=== PATIENT | male | born 1955 | race Caucasian/White ===

== ENCOUNTER 2021-04-21 06:21 | Outpatient (REF) | payer MEDICARE, SELFPAY ==
[2021-04-21 07:02] LABS: MANUAL DIFF FLAG NO
[2021-04-21 07:04] LABS: Basophils Percent Auto 0.6 % (0-2); Eosinophils Absolute Auto 0.2 X10*3/uL (0.0-0.4); Eosinophils Percent Auto 4.5 % (0-4); Hematocrit 42.3 % (42-52); Hemoglobin 14.9 g/dl (14.0-18.0); Imm Gran Abs Auto 0.01 X10*3/uL (0.00-0.03); Imm Gran Pct Auto 0.2 % (0.0-0.4); Lymphocytes Absolute Auto 1.5 X10*3/uL (1.2-4.9); Lymphocytes Percent Auto 31.6 % (20-40); Mean Corpuscular HGB Conc 35.2 g/dl (31.0-36.0); Mean Corpuscular Volume 93.8 fL (80-98); Mean Platelet Volume 9.5 fL (9.4-12.4); Monocytes Absolute Auto 0.5 X10*3/uL (0.1-1.2); Monocytes Percent Auto 9.4 % (2-11); Neutrophils Absolute Auto 2.6 X10*3/uL (2.0-8.3); Neutrophils Percent Auto 53.7 % (45-73); Platelet Count 233 X10*3/uL (160-400); Red Blood Count 4.51 X10*6/uL (4.60-5.80); Red Cell Distribution Width 12.5 % (11.0-16.0); White Blood Count 4.9 X10*3/uL (4.8-10.8)
[2021-04-21 07:51] LABS: Alanine Aminotransferase 15 U/L (0-40); Albumin Level 4.3 g/dL (3.5-5.0); Alkaline Phosphatase 65 U/L (39-117); Anion Gap 12 (12-20); Aspartate Amino Transferase 18 U/L (5-37); Bilirubin Total 0.8 mg/dL (0.0-1.0); Blood Urea Nitrogen 14 mg/dL (9-16); Calcium 9.3 mg/dL (8.4-10.2); Carbon Dioxide 27 mmol/L (22-29); Chloride 104 mmol/L (96-108); Cholesterol 194 mg/dL; Estimated Glomerular Filt Rate > 60; Glucose Random 95 mg/dL (60-115); HDL Cholesterol 46 mg/dL; LDL Cholesterol Calculated 126 mg/dl; Potassium 4.5 mmol/L (3.3-5.1); Sodium 138 mmol/L (135-145); Total Protein 6.9 g/dL (6.5-8.0); Triglycerides 114 mg/dL
[2021-04-21 08:03] LABS: Prostate Specific Antigen 2.38 ng/mL (<0.05-4.0); Vitamin D 25-OH Total 44.2 ng/mL (>30)
[2021-04-29 13:56] LABS: Testosterone, Total 254 ng/dL (250-1100)
== END 2021-04-21 06:22 | disposition home or self-care (01) ==
LOC: HO.LAB 06:21
PROVIDERS: PCP Internal Medicine; Visit Provider Internal Medicine
DX: Z00.00 Encounter for general adult medical examination without abnormal findings (principal); Z12.5 Encounter for screening for malignant neoplasm of prostate
CPT/HCPCS: 36415; 80053; 80061; 82306; 84153; 84403; 85025

== ENCOUNTER 2022-04-27 06:11 | Outpatient (REF) | payer MEDICARE, SELFPAY ==
[2022-04-27 06:32] LABS: MANUAL DIFF FLAG NO
[2022-04-27 07:31] LABS: Basophils Percent Auto 0.7 % (0-2); Eosinophils Absolute Auto 0.2 X10*3/uL (0.0-0.4); Eosinophils Percent Auto 4.3 % (0-4); Hematocrit 42.5 % (42.0-52.0); Hemoglobin 14.9 g/dl (14.0-18.0); Imm Gran Abs Auto 0.01 X10*3/uL (0.00-0.03); Imm Gran Pct Auto 0.2 % (0.0-0.4); Lymphocytes Absolute Auto 1.4 X10*3/uL (1.2-4.9); Lymphocytes Percent Auto 30.4 % (20-40); Mean Corpuscular HGB Conc 35.1 g/dl (31.0-36.0); Mean Corpuscular Hemoglobin 32.2 pg (27.0-33.0); Mean Corpuscular Volume 91.8 fL (80.0-98.0); Mean Platelet Volume 9.6 fL (9.4-12.4); Monocytes Absolute Auto 0.5 X10*3/uL (0.1-1.2); Monocytes Percent Auto 10.8 % (2-11); Neutrophils Absolute Auto 2.5 x10*3/uL (2.0-8.3); Neutrophils Percent Auto 53.6 % (45-73); Platelet Count 247 X10*3/uL (160-400); Red Blood Count 4.63 X10*6/uL (4.60-5.80); Red Cell Distribution Width 12.4 % (11.0-16.0); White Blood Count 4.6 X10*3/uL (4.8-10.8)
[2022-04-27 08:00] LABS: Alanine Aminotransferase 15 U/L (0-40); Albumin Level 4.3 g/dL (3.5-5.0); Alkaline Phosphatase 66 U/L (39-117); Anion Gap 14 (12-20); Aspartate Amino Transferase 18 U/L (5-37); Blood Urea Nitrogen 18 mg/dL (9-16); Carbon Dioxide 26 mmol/L (22-29); Chloride 102 mmol/L (96-108); Estimated Glomerular Filt Rate > 60; Glucose Random 93 mg/dL (60-115); Potassium 4.5 mmol/L (3.3-5.1); Sodium 137 mmol/L (135-145)
[2022-04-27 08:13] LABS: ~HepC Num1 0.07 S/CO (0.00-0.79); ~Hepatitis C Antibody Nonreactive (Nonreactive)
[2022-04-27 08:21] LABS: Vitamin B12 611 pg/mL (200-900)
[2022-04-27 08:22] LABS: Prostate Specific Antigen 2.08 ng/mL (<0.05-4.0); Thyroid Stimulating Hormone 1.94 uIU/mL (0.32-4.0); Vitamin D 25-OH Total 43.3 ng/mL (>30)
== END 2022-04-27 06:12 | disposition home or self-care (01) ==
LOC: HO.LAB 06:11
PROVIDERS: PCP Internal Medicine; Visit Provider Internal Medicine
DX: Z00.01 Encounter for general adult medical examination with abnormal findings (principal); Z12.5 Encounter for screening for malignant neoplasm of prostate; Z11.59 Encounter for screening for other viral diseases
CPT/HCPCS: 36415; 80053; 82306; 82607; 84153; 84443; 85025; 86803

== ENCOUNTER 2023-05-16 06:29 | Outpatient (REF) | payer MEDICARE, SELFPAY ==
[2023-05-16 06:44] LABS: MANUAL DIFF FLAG NO
[2023-05-16 07:02] LABS: Basophils Percent Auto 0.7 % (0-2); Eosinophils Absolute Auto 0.2 X10*3/uL (0.0-0.4); Eosinophils Percent Auto 4.7 % (0-4); Hematocrit 44.1 % (42.0-52.0); Hemoglobin 15.4 g/dl (14.0-18.0); Lymphocytes Absolute Auto 1.6 X10*3/uL (1.2-4.9); Lymphocytes Percent Auto 36.9 % (20-40); Mean Corpuscular HGB Conc 34.9 g/dl (31.0-36.0); Mean Corpuscular Hemoglobin 32.7 pg (27.0-33.0); Mean Corpuscular Volume 93.6 fL (80.0-98.0); Mean Platelet Volume 9.4 fL (9.4-12.4); Monocytes Absolute Auto 0.5 X10*3/uL (0.1-1.2); Monocytes Percent Auto 11.4 % (2-11); Neutrophils Percent Auto 46.3 % (45-73); Platelet Count 223 X10*3/uL (160-400); Red Blood Count 4.71 X10*6/uL (4.60-5.80); Red Cell Distribution Width 12.2 % (11.0-16.0); White Blood Count 4.3 X10*3/uL (4.8-10.8)
[2023-05-16 07:38] LABS: Alanine Aminotransferase 16 U/L (0-40); Albumin Level 4.3 g/dL (3.5-5.0); Alkaline Phosphatase 59 U/L (39-117); Anion Gap 12 (12-20); Aspartate Amino Transferase 20 U/L (5-37); Bilirubin Total 0.8 mg/dL (0.0-1.0); Blood Urea Nitrogen 15 mg/dL (9-16); Calcium 9.9 mg/dL (8.4-10.2); Carbon Dioxide 27 mmol/L (22-29); Chloride 105 mmol/L (96-108); Cholesterol 199 mg/dL (<200); Estimated Glomerular Filt Rate > 60; Glucose Random 97 mg/dL (60-115); HDL Cholesterol 49 mg/dL (>40); LDL Cholesterol Calculated 134 mg/dL (<100); Potassium 4.8 mmol/L (3.3-5.1); Sodium 139 mmol/L (135-145); Total Protein 7.2 g/dL (6.5-8.0); Triglycerides 83 mg/dL (<150)
== END 2023-05-16 06:30 | disposition home or self-care (01) ==
LOC: HO.LAB 06:29
PROVIDERS: PCP Internal Medicine; Visit Provider Internal Medicine
DX: Z00.01 Encounter for general adult medical examination with abnormal findings (principal); Z12.5 Encounter for screening for malignant neoplasm of prostate
CPT/HCPCS: 36415; 80053; 80061; 84153; 85025

== ENCOUNTER 2024-06-05 06:21 | Outpatient (REF) | payer MEDICARE, SELFPAY ==
[2024-06-05 06:35] LABS: MANUAL DIFF FLAG NO
[2024-06-05 07:14] LABS: Basophils Absolute Auto 0.1 X10*3/uL (0.0-0.2); Eosinophils Absolute Auto 0.3 X10*3/uL (0.0-0.4); Eosinophils Percent Auto 4.8 % (0-4); Hematocrit 42.6 % (42.0-52.0); Imm Gran Abs Auto 0.01 X10*3/uL (0.00-0.03); Imm Gran Pct Auto 0.2 % (0.0-0.4); Lymphocytes Absolute Auto 1.7 X10*3/uL (1.2-4.9); Lymphocytes Percent Auto 31.9 % (20-40); Mean Corpuscular HGB Conc 35.2 g/dl (31.0-36.0); Mean Corpuscular Hemoglobin 32.9 pg (27.0-33.0); Mean Corpuscular Volume 93.4 fL (80.0-98.0); Mean Platelet Volume 9.4 fL (9.4-12.4); Monocytes Absolute Auto 0.6 X10*3/uL (0.1-1.2); Monocytes Percent Auto 10.8 % (2-11); Neutrophils Absolute Auto 2.7 x10*3/uL (2.0-8.3); Neutrophils Percent Auto 51.3 % (45-73); Platelet Count 219 X10*3/uL (160-400); Red Blood Count 4.56 X10*6/uL (4.60-5.80); Red Cell Distribution Width 12.6 % (11.0-16.0); White Blood Count 5.3 X10*3/uL (4.8-10.8)
[2024-06-05 07:32] LABS: Alanine Aminotransferase 17 U/L (0-40); Albumin Level 4.2 g/dL (3.5-5.0); Alkaline Phosphatase 69 U/L (39-117); Anion Gap 13 (12-20); Aspartate Amino Transferase 25 U/L (5-37); Bilirubin Total 0.7 mg/dL (0.0-1.0); Blood Urea Nitrogen 17 mg/dL (9-16); Calcium 9.6 mg/dL (8.4-10.2); Carbon Dioxide 28 mmol/L (22-29); Chloride 103 mmol/L (96-108); Cholesterol 211 mg/dL (<200); Estimated Glomerular Filt Rate > 60; Glucose Random 98 mg/dL (60-115); HDL Cholesterol 55 mg/dL (>40); LDL Cholesterol Calculated 139 mg/dL (<100); Potassium 4.1 mmol/L (3.3-5.1); Sodium 140 mmol/L (135-145); Total Protein 7.1 g/dL (6.5-8.0); Triglycerides 89 mg/dL (<150)
[2024-06-05 07:45] LABS: Prostate Specific Antigen 3.53 ng/mL (<0.05-4.0)
== END 2024-06-05 06:22 | disposition home or self-care (01) ==
LOC: HO.LAB 06:21
PROVIDERS: PCP Internal Medicine; Visit Provider Internal Medicine
DX: Z00.00 Encounter for general adult medical examination without abnormal findings (principal); N40.0 Benign prostatic hyperplasia without lower urinary tract symptoms; Z12.5 Encounter for screening for malignant neoplasm of prostate
CPT/HCPCS: 36415; 80053; 80061; 84153; 85025

== ENCOUNTER 2024-11-15 14:05 | Outpatient (REF) | payer MEDICARE, SELFPAY ==
[2024-11-15 14:23] LABS: MANUAL DIFF FLAG NO
--- OUTSIDE RECORDS SUMMARY | 2024-11-15 14:34 | XMS_ITS | Continuity of Care Document ---
Author Organization [facility] Address [address] [place] [address] [place] [address] Assessment No assessment recorded. Plan of Treatment Reminders Order Date Submit Date Provider Last Modified By Organization Details Last Modified Time Details Appointments FOLLOW UP 15 2024 10:45A M LONA DWYER Not available Not available Not available ANNUAL EXAM 2024 09:00A M DR LOCK Not available Not available Not available Lab PSA, serum or plasma 2024 025 [facility], [address] [place] [address], [id number], 11/15/2024 11:21:37 CBC w/ auto diff 2024 025 [facility], [address] [place] [address], [id number], 11/15/2024 11:21:37 CMP, serum or plasma 2024 025 [facility], [address] [place] [address], [id number], 11/15/2024 11:21:37 urinalysi s complete, reflex culture 2024 025 [facility], [address] [place] [address], [id number], 11/15/2024 11:21:37 Referral None recorded. Procedures None recorded. Surgeries None recorded. Imaging CT, abdomen + pelvis, w/ contrast 2024 025 [email or web address] [facility]), [address] [place] [address], [place], [id number], 11/15/2024 11:23:00 Medication Orders None recorded. Patient TargetsNo targets recorded. Patient InstructionsNo instructions recorded. Reason for Referral None Reported. Problems Name Problem SNOMED Code Status Onset Date Resolution Date Notes Provider Name and Address Organization Details Recorded Time Benign prostatic hyperplas ia 201781945 Active 2020 Not Available [facility] 3 08:19:45 Tenosynov itis of right radial styloid 653216082663 86757 Active 2021 Not Available [facility] 3 08:19:45 Osteoarth rosis of the carpometa carpal joint of the thumb 95507140 Active 2021 Not Available [facility] 3 08:19:45 Dysplasti c nevus of skin 644323753 Active 2023 Jagdeep Lock DO [address] [place] [address], [phone], [facility] 4 09:22:34 Gastritis 8817978 Active 2023 LONA DWYER [address] [place] [address], [phone], [facility] 4 14:13:51 Inguinal pain 041683504 Active 2024 LONA DWYER [address] [place] [address], [phone], [facility] 5 11:17:58 Pain in right hip joint 952547981997 102 Active 2024 LONA DWYER [address] [place] [address], [phone], [facility] 5 11:18:06 Low back pain 552457050 Active 2024 LONA DWYER [address] [place] [address], [phone], [facility] 5 11:18:15 Problem Notes None recorded. Medical Equipment None Reported. Allergies No known drug allergies Medications Name Sig Start Date Stop Date Status Note LastModified by Organization Details LastModified Time pantoprazol e sodium 40 mg tbec 03/10 completed Not Available Not Available Not Available gavilyte-g mala 03/10 completed Not Available Not Available Not Available hydromorpho ne hcl 4 mg tabs 03/10 completed Not Available Not Available Not Available celecoxib 200 mg caps 03/10 completed Not Available Not Available Not Available amoxicillin 500 mg capsule TAKE 4 CAPSULES BY MOUTH 1 HOUR PRIOR TO PROCEDURE 11/15 completed Not Available Not Available Not Available sildenafil 50 mg tablet TAKE 1 TABLET BY MOUTH NEEDED 04/26 completed Not Available Not Available Not Available omeprazole 40 mg capsule,del ayed release TAKE 1 CAPSULE BY MOUTH EVERY DAY 2023 active Not Available Not Available Not Avai lable sildenafil 100 mg tablet TAKE 1 TABLET BY MOUTH EVERY DAY DIRECTED active Not Available Not Available No t Available diclofenac sodium 75 mg tablet,geovany yed release Take 1 tablet twice a day by oral route for 15 days. 05/01 completed Not Available Not Available Not Available Fluarix Quad 4560-7928 (PF) 60 mcg (15 mcg x 4)/0.5 mL IM syringe 03/05 completed Not Available Not Available Not Available Vitals Date Recorded Body height Body mass index (BMI) Body weight Heart rate Oxygen saturation Oxygen saturation in Arterial blood by Pulse oximetry Systolic blood pressure Diastolic blood pressure Provider Name and Address Organization Details Last Updated DateTime 5 167.64 cm 29.1 kg/m2 85262.3 5 g 56 /min 98 % 98 % 126 mm[Hg] 82 mm[Hg] Laura Tre [facility] 5 10:49:42 Social History Question Answer Notes LastModified by Organizat ion Details LastModified Time Tobacco Smoking Status Never Smoker Not Available [facility] 07/28/2020 03:36:24 What Is Your Level Of Alcohol Consumption? Occasional [id number] Information not available 07/28/2020 What Is Your Level Of Caffeine Consumption? Occasional 2-3 Cups Coffee Per Day [id number] Information not available 07/28/2020 What Was The Date Of Your Most Recent Tobacco Screening? 11/15/2024 [email or web address] Information not available 11/15/2024 Do You Or Have You Ever Used Any Other Forms Of Tobacco Or Nicotine? No [email or web address] Information not available 05/15/2023 Sex: Unknown Functional Status Question Answer Note LastModified by Organization D etails LastModified Time What is your exercise level? Moderate [id number] Information not available 07/28/2020 Mental Status None recorded. Family History Nothing Reported. Medical History No medical history recorded. Immunizations Vaccine Type Date Status Note Provider Nam e and Address Organization Details Recorded Time Tdap 04/12/20 20 completed Jagdeep Lock, DO [address] [place] [address], [place], [phone], [facility] 04/20/2021 10:50:41 pneumococcal polysaccharide PPV23 06/02/20 20 completed Tayler Gencarelle [facility] 04/26/2022 09:26:59 zoster, unspecified formulation 06/02/20 20 [facility] 09:26:59 zoster, unspecified formulation 10/16/19 21 completed Tayler Gencarelle [facility] 04/26/2022 09:26:59 COVID-19, mRNA, LNP-S, PF, 100 mcg/0.5mL dose or 50 mcg/0.25mL dose 11/16/19 21 completed Tayler Gencarelle [facility] 04/26/2022 09:26:59 COVID-19, mRNA, LNP-S, PF, 100 mcg/0.5mL dose or 50 mcg/0.25mL dose 12/15/19 21 completed Tayler Gencarelle [facility] 04/26/2022 09:26:59 Influenza, split virus, quadrivalent, preservative 06/08/20 21 completed Tayler Gencarelle [facility] 04/26/2022 09:26:59 COVID-19, mRNA, LNP-S, bivalent, PF, 50 mcg/0.5 mL or 25mcg/0.25 mL dose 08/30/20 22 completed Liliana Alonzo kacie [facility] 09/02/2022 08:27:16 Influenza, split virus, quadrivalent, preservative 07/22/20 18 completed Tayler Montague kacie [facility] 04/26/2022 09:26:59 Past Encounters Encounter ID Performer Location Encounter Start Date Encounter Closed Date Diagnosis/Indication Diagnosis SNOMED-CT Code Diagnosis ICD10 Code Diagnosis Note [id number] LONA DWYER [facility] [address] [address] 11/15/2024 10:32:09 11/15/2024 11:23:00 Screening for malignant neoplasm of prostate 403637174 Z12.5 will set up with PSA screening recheck given upper wnl last time and new symptoms with urine testing Inguinal pain 441054644 R10.[address] for eval for the non specific pain Pain in ri ght hip joint 9218008387 94795 M25.551 hx of THR Low back pain 742937781 M54.50 Health Concerns Section Related Observation LastModified by Organization Detai ls LastModified Time None Recorded Concern Status LastModified by Organization Details LastModified Time None Recorded Payers Encounter Date Sequence Insurance Name Policy Number Policy Saucedo Covered Member ID Saucedo Member ID Guarantor Name 11/15/2024 1 [facility]: MEDICARE PPO BLUE (MEDICARE REPLACEMENT PPO) [id number] Hal Story [id number] Hal Story Notes Date Note Type Note Provider Name a nd Address Organization Details Recorded Time 11/15/2024 text/html c/o groin pain the patient reports that he is getting hip, groin pain, down there per patientthe patient reports that he does have a weaker stream during the night and at the day notes he is having more issues with the sildenafil, having to take more that he usually does no discharge, no urinary changes otherwisethe patient has not pain or issues with ejaculation of intercourse the patient reports that he has been having more frequent, smaller bowel movements for the past 3 mos the patient does not note any main changes positionalthe patient denies any masses or lumps in his testicles, no tenderness with palpation LONA DWYER [address] [place] [address], [phone], [facility] 11/15/2024 11:22:26
--- OUTSIDE RECORDS SUMMARY | 2024-11-15 14:34 | XMS_ITS | Data Portability ---
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 MODERATE MUST MEET 2 OUT OF 3 ELEMENTS: PROBLEMS, DATA OR RISK ELEMENT 1: PROBLEMS ADDRESSED 1 OR MORE CHRONIC ILLNESS WITH EXACERBATION OR 2 OR MORE STABLE CHRONIC ILLNESSES OR 1 UNDIAGNOSED NEW PROBLEM OR 1 ACUTE ILLNESS W/SYMPTOMS OR 1 ACUTE COMPLICATED INJURY ELEMENT 2: DATA MUST MEET 1 OF 3 CATEGORIES CATEGORY 1: REVIEW OF PRIOR EXTERNAL NOTES, REVIEW OF RESULTS, ORDERING OF EACH TEST, ASSESSMENT REQUIRING INDEPENDENT HISTORIAN OR CATEGORY 2: INDEPENDENT INTERPRETATION OF TESTS BY ANOTHER PHYSICIAN OR SPECIALIST OR CATEGORY 3: DISCUSSION OF MGT OR TEST INTERPRETATION W/EXTERNAL PHYSICIAN OR SPECIALIST ELEMENT 3: RISK RISK OF COMPLICATIONS AND/OR MORBIDITY OR MORTALITY OF PATIENT MANAGEMENT PROVIDER MUST THOROUGHLY DOCUMENT EACH ELEMENT THAT IS COVERED Not available 05/15/2023 15:49:41 Plan of Treatment Reminders Order Date Submit Date Provider Last Modified By Organization Details Last Modified Time Details Appointments FOLLOW UP 15 2024 10:45A M LONA DWYER Not available Not available Not available ANNUAL EXAM 2024 09:00A M DR LOCK Not available Not available Not available Lab PSA, serum or plasma 2024 025 [facility], [address] [place] [address], [place], [id number], 11/15/2024 11:21:37 CBC w/ auto diff 2024 025 [facility], [address] [place] [address], [id number], 11/15/2024 11:21:37 CMP, serum or plasma 2024 025 [facility], [address] [place] [address], [id number], 11/15/2024 11:21:37 urinalysi s complete, reflex culture 2024 025 [facility], [address] [place] [address], [id number], 11/15/2024 11:21:37 CMP, serum or plasma 2023 024 [facility], [address] [place] [address], [id number], 06/05/2024 11:14:03 CBC w/ auto diff 2023 024 [facility], [address] [place] [address], [id number], 06/05/2024 11:14:04 lipid panel, blood 2023 024 [facility], [address] [place] [address], [id number], 06/05/2024 11:14:03 PSA, serum or plasma 2023 024 [facility], [address] [place] [address], [id number], 06/05/2024 11:14:04 CMP, serum or plasma 2022 023 [facility], [address] [place] [address], [id number], 05/16/2023 12:13:18 CBC w/ auto diff 2022 023 [facility], [address] [place] [address], [id number], 05/16/2023 12:13:19 PSA, serum or plasma 2022 023 [facility], [address] [place] [address], [id number], 05/16/2023 12:13:19 lipid panel, blood 2022 023 [facility], [address] [place] [address], [id number], 05/16/2023 12:13:19 CBC w/ auto diff 2021 022 [facility], [address] [place] [address], [id number], 04/27/2022 13:01:50 CMP, serum or plasma 2021 022 [facility], [address] [place] [address], [id number], 04/27/2022 13:01:50 PSA, serum or plasma 2021 022 [facility], [address] [place] [address], [id number], 04/26/2022 10:10:35 vitamin D, 25-hydrox y, total, serum 2021 022 [facility], [address] [place] [address], [address], 04/26/2022 10:10:35 vitamin B12, serum 2021 022 [facility], [address] [place] [address], [id number], 04/26/2022 10:10:35 TSH, serum or plasma 2021 022 [facility], [address] [place] [address], [id number], 04/26/2022 10:10:35 hepatitis C Ab, serum 2021 022 [facility], [address] [place] [address], [place], [address], 04/26/2022 10:10:35 Referral dermatolo gist referral 2023 024 [email or web address] 10 [facility], [address], [place], [address], 06/05/2024 08:17:44 hand surgeon referral 2021 022 [email or web address] 10 Alisha Paz MD, [address] [place] [address], [id number], 05/25/2022 08:00:03 Procedures None recorded. Surgeries None recorded. Imaging CT, abdomen + pelvis, w/ contrast 2024 025 [facility] ([facility]), [address] [place] [address], [place], [address], 11/15/2024 11:23:00 Medication Orders omeprazol e 40 mg capsule,d elayed release 2023 024 [email or web address] [id number], [address] [facility], [place], [address], 07/17/2024 08:30:54 Patient TargetsNo targets recorded. Patient Instructions Encounter Date Encounter Id Patient Instructions Last Modified By Organization Details Last Modified Time 04/26/2022 [id number] osteoarthritis: care instructions Not available 04/26/2022 10:06:43 05/15/2023 [id number] osteoarthritis: care instructions Not available 05/15/2023 15:55:18 Reason for Referral Hand Surgeon Referral for Os teoarthrosis of the carpometacarpal joint of the thumb Referring Physician: Jagdeep Lock, Internal Medicine, Encounter Date: 04/26/2022 Crop Pest Control Specialist Referral for D ysplastic nevus of skin Referring Physician: Jagdeep Lock, Internal Medicine, Encounter Date: 06/04/2024 Results Created Date Observation Date Name Description Value Unit Range Abnormal Flag Note LastModifiedBy Organization Detail LastModifiedTime Result Notes None recorded. Problems Name Problem SNOMED Code Status Onset Date Resolution Date Notes Provider Name and Address Organization Details Recorded Time Benign prostatic hyperplas ia 126814172 Active 2020 Not Available [facility] 3 08:19:45 Tenosynov itis of right radial styloid 762235530092 29959 Active 2021 Not Available [facility] 3 08:19:45 Osteoarth rosis of the carpometa carpal joint of the thumb 83627218 Active 2021 Not Available [facility] 3 08:19:45 Dysplasti c nevus of skin 082979842 Active 2023 Jagdeep Lock, [address] [place] [address], [phone], [facility] 4 09:22:34 Gastritis 3072704 Active 2023 LONA DWYER [address] [place] [address], [address], [facility] 4 14:13:51 Inguinal pain 020593725 Active 2024 LONA DWYER [address] [place] [address], [address], [facility] 5 11:17:58 Pain in right hip joint 588947827127 102 Active 2024 LONA DWYER [address] [place] [address], [address], [facility] 5 11:18:06 Low back pain 995649519 Active 2024 LONA DWYER [address] [place] [address], [address], [facility] 5 11:18:15 Problem Notes [...] Available Not Available Not Available Fluarix Quad 0778-2371 (PF) 60 mcg (15 mcg x 4)/0.5 mL IM syringe 03/05 completed Not Available Not Available Not Available Vitals Date Recorded Body weight Body mass index (BMI) Body height Heart rate Oxygen saturation Oxygen saturation in Arterial blood by Pulse oximetry Systolic blood pressure Diastolic blood pressure Provider Name and Address Organization Details Last Updated DateTime 2 22679.2 9 g 28.2 kg/m2 168.91 cm 56 /min 99 % 99 % 144 mm[Hg] 90 mm[Hg] Jagdeep Lock, DO [address] [place], [address] [place] [address] Internal Medicine 2 09:31:09 Date Recorded Body height Body mass index (BMI) Body weight Heart rate Oxygen saturation Oxygen saturation in Arterial blood by Pulse oximetry Systolic blood pressure Diastolic blood pressure Provider Name and Address Organization Details Last Updated DateTime 3 167.64 cm 28.4 kg/m2 33777.2 6 g 54 /min 99 % 99 % 122 mm[Hg] 80 mm[Hg] [facility] 3 14:48:06 Date Recorded Body height Body mass index (BMI) Body weight Heart rate Oxygen saturation Oxygen saturation in Arterial blood by Pulse oximetry Systolic blood pressure Diastolic blood pressure Provider Name and Address Organization Details Last Updated DateTime 4 167.64 cm 28.4 kg/m2 95550.2 6 g 55 /min 99 % 99 % 122 mm[Hg] 68 mm[Hg] [facility] 4 09:11:30 Date Recorded Body height Body mass index (BMI) Body weight Heart rate Oxygen saturation Oxygen saturation in Arterial blood by Pulse oximetry Systolic blood pressure Diastolic blood pressure Provider Name and Address Organization Details Last Updated DateTime 4 167.64 cm 28.5 kg/m2 80372.0 5 g 55 /min 97 % 97 % 120 mm[Hg] 86 mm[Hg] [facility] 4 14:02:52 Date Recorded Body height Body mass index (BMI) Body weight Heart rate Oxygen saturation Oxygen saturation in Arterial blood by Pulse oximetry Systolic blood pressure Diastolic blood pressure Provider Name and Address Organization Details Last Updated DateTime 5 167.64 cm 29.1 kg/m2 14026.3 5 g 56 /min 98 % 98 % 126 mm[Hg] 82 mm[Hg] Laura [facility] 5 10:49:42 Social History Question Answer Notes LastModified by Organizat ion Details LastModified Time Tobacco Smoking Status Never Smoker Not Available [facility] 07/28/2020 03:36:24 What Is Your Level Of Alcohol Consumption? Occasional [id number] Information not available 07/28/2020 What Is Your Level Of Caffeine Consumption? Occasional 2-3 Cups Coffee Per Day [id number] Information not available 07/28/2020 What Was The Date Of Your Most Recent Tobacco Screening? 11/15/2024 [email or web address] Information not available 11/15/2024 Do You Or Have You Ever Used Any Other Forms Of Tobacco Or Nicotine? No [email or web address] Information not available 05/15/2023 Sex: Unknown Functional Status Question Answer Note LastModified by Organization D etails LastModified Time What is your exercise level? Moderate [id number] Information not available 07/28/2020 Mental Status None recorded. Family History Nothing Reported. Medical History No medical history recorded. Immunizations Vaccine Type Date Status Note Provider Nam e and Address Organization Details Recorded Time Tdap 04/12/20 20 completed Jagdeep Lock, DO [address] [facility], [place], [address], [facility] 04/20/2021 10:50:41 pneumococcal polysaccharide PPV23 06/02/20 20 completed Tayler Gencarelle [facility] 04/26/2022 09:26:59 zoster, unspecified formulation 06/02/20 20 completed [facility] 04/26/2022 09:26:59 zoster, unspecified formulation 10/16/19 21 completed Tayler Gencarelle [facility] 04/26/2022 09:26:59 COVID-19, mRNA, LNP-S, PF, 100 mcg/0.5mL dose or 50 mcg/0.25mL dose 11/16/19 21 completed Tayler Gencarelle [facility] 04/26/2022 09:26:59 COVID-19, mRNA, LNP-S, PF, 100 mcg/0.5mL dose or 50 mcg/0.25mL dose 12/15/19 21 completed Tayler Gencarelle [facility] 04/26/2022 09:26:59 Influenza, split virus, quadrivalent, preservative 06/08/20 21 completed Tayler Gencarelle [facility] 04/26/2022 09:26:59 COVID-19, mRNA, LNP-S, bivalent, PF, 50 mcg/0.5 mL or 25mcg/0.25 mL dose 08/30/20 22 completed Liliana Alonzo [facility] 09/02/2022 08:27:16 Influenza, split virus, quadrivalent, preservative 07/22/20 18 completed Tayler Gencarelle [facility] 04/26/2022 09:26:59 Past Encounters Encounter ID Performer Location Encounter Start Date Encounter Closed Date Diagnosis/Indication Diagnosis SNOMED-CT Code Diagnosis ICD10 Code Diagnosis Note [id number] Jagdeep Chatterjeeda, [facility] [address] [facility] on [address],[place] [address] 02/27/2018 10:38:02 02/27/2018 12:08:31 Adult health examination 887808130 Z00.00 doing great awesome exercise and diet routines will need fbw Active or passive immunization 245699896 Z23 [facility] shingles vaccine [id number] Jagdeep Chatterjeestephanie [facility] Internal [facility] [address] [facility],[place] [address] 05/01/2018 15:00:28 05/01/2018 16:34:54 Postcalcaneal bursitis 204894144 M77.30 will finish diclofenac set up ortho if stable can cancel ortho if pain resumes will already have appt [id number] Jagdeep HillJavon Lock [facility] Internal [address],[place] [address] 03/05/2019 09:52:40 03/05/2019 10:27:13 Adult health examination 716878706 Z00.00 doing great awesome exercise and diet routines will need fbw Pain of le ft hip joint 5028942167 50714 M25.552 will xray first consider refer to dr bobo at [facility] [id number] Jagdeep LizJavon Lock [facility] Internal [address],[place] [address] 09/27/2019 15:14:09 09/27/2019 15:54:16 Pain in left knee 5870757907 00719 M25.562 poss lat meniscal injury or even IT band? will ask for a eval with xray Pain of le ft hip joint 5213795931 [address] Bobo at [facility] is following this Awaiting appt to schedule replacemen t in Oct Jagdeep Lock [facility] [address] [place] [address] 03/10/2020 09:53:24 03/10/2020 10:32:46 Adult health examination 202439898 Z00.00 doing great awesome exercise and diet routines will need fbw Active or passive immunization 880780711 Z23 recc shingles vaccine [id number] Jagdeep Lock [facility] [address] [facility],[place] [address] 04/20/2021 10:46:17 04/20/2021 11:36:29 Active or passive immunization 873482370 Z23 recc shingles vaccine Adult heal th examination 982901530 Z00.00 doing great awesome exercise and diet routines will need fbw Primary er ectile dysfunction 983619825 N52.9 [id number] Jagdeep Lock [facility] [address] [facility],[place] [address] 04/26/2022 09:26:43 04/26/2022 10:37:07 Active or passive immunization 918208985 Z23 recc shingles vaccine Adult heal th examination 938143882 Z00.01 doing great awesome exercise and diet routines will need fbw Hepatitis C screening 41 8436807 Z11.59 Osteoarthr osis of the carpometacarpal joint of the thumb 08681145 M18.9 [id number] Jagdeep Lock [facility] [address] [facility],[place] [address] 05/15/2023 14:37:16 05/15/2023 16:03:04 Osteoarthrosis of the carpometacarpal joint of the thumb 48857331 M18.9 Adult heal th examination 572423152 Z00.01 doing great awesome exercise and diet routines will need fbw [id number] Jagdeep Lock [facility] [address] [facility],[place] [address] 06/04/2024 09:00:36 06/04/2024 09:53:34 Active or passive immunization 891161801 Z23 recc shingles vaccine Adult heal th examination 262867486 Z00.00 doing great awesome exercise and diet routines will need fbw Benign pro static hyperplasia 532584188 N40.0 Dysplastic nevus of skin 656163599 D22.9 will have them get it checked on his back [id number] LONA DWYER [facility] [address] [facility] [address],[place] [address] 06/25/2024 13:56:52 06/25/2024 14:49:01 Depression screening 788103931 Z13.31 SCREENING NEGATIVE Gastritis 3929095 K29.60 will set up with omeprazole [id number] LONA DWYER [facility] [address] [facility] [address],[place] [address] 11/15/2024 10:32:09 11/15/2024 11:23:00 Screening for malignant neoplasm of prostate 479892016 Z12.5 will set up with PSA screening recheck given upper wnl last time and new symptoms with urine testing Inguinal pain 049974458 R10.[address] for eval for the non specific pain Pain in ri ght hip joint 4391897322 49009 M25.551 hx of THR Low back pain 689744521 M54.50 Health Concerns Section Related Observation LastModified by Organization Detai ls LastModified Time None Recorded Concern Status LastModified by Organization Details LastModified Time None Recorded Advance Directives Directive None Recorded Payers Encounter Date Sequence Insurance Name Policy Number Policy Saucedo Covered Member ID Saucedo Member ID Guarantor Name 04/26/2022 2 [employer] OPTIONS (MEDICARE SUPPLEMENT) Hal A Laprade [id number] Hal A Laprade 04/26/2022 1 MEDIC[place]: [employer] Hal A Laprade [id number] Hal A Laprade 05/15/2023 2 [employer] OPTIONS (MEDICARE SUPPLEMENT) Hal A Laprade [id number] Hal A Laprade 05/15/2023 1 [place] [employer]MENT [place] Hal A Laprade [id number] Hal A Laprade 06/04/2024 2 [employer] OPTIONS (MEDICARE SUPPLEMENT) Hal A Laprade [id number] Hal A Laprade 06/04/2024 1 MEDICARE B-[place]: NATIONAL [employer]MENT [employer] Hal A Laprade [id number] Hal A Laprade 06/25/2024 2 [employer] OPTIONS (MEDICARE SUPPLEMENT) Hal A Laprade [id number] Hal Story 06/25/2024 1 MEDICARE B-[place]: [facility] Hal Story [id number] Hal Story 11/15/2024 1 [facility]: MEDICARE PPO BLUE (MEDICARE REPLACEMENT PPO) [id number] Hal Story [id number] Hal Story Notes Date Note Type Note Provider Name a or Address Organization Details Recorded Time 2 text/html Annual WellnessReported bypatient.Diet and Nutrition:healthy diet Fracture Risk:no history of fractures; no recent explained fracture; no sudden unexplained fractures; no previous musculoskeletal injuries Physical Activity:exercises on a regular basis; recent increase in physical activity; good physical condition Additional Lifestyle Factors:no tobacco use; no alcohol intake; stopped drinking alcohol Depression Risk:never feels sad, empty, or tearful; no loss of interest in activities; no significant changes in weight; no sleep disturbances or insomnia; no agitation; no loss of energy; no feelings of worthlessness or guilt; no thoughts of suicide; no history of depression; no history of mood disorders Hearing:no loss of hearing Vision:no vision problemsNotes:stays active daily walks daily several miles Jagdeep Lock DO [address] [place] [address], [phone], [facility] 04/26/2022 10:08:42 3 text/html here for rechkstill has a lot of pain in the left thumb area where he has all the arthritishas a couple of skin lesions on his back Jagdeep Lock DO [address] [place] [address], [address], [facility] 05/15/2023 15:58:12 4 text/html doing well states that he is just back [facility] Jagdeep Lock DO [address] [place] [address], [address], [facility] 06/04/2024 09:30:32 4 text/html Annual WellnessReported bypatient.Diet and Nutrition:healthy diet Fracture Risk:no history of fractures; no recent explained fracture; no sudden unexplained fractures; no previous musculoskeletal injuries Physical Activity:exercises on a regular basis; recent increase in physical activity; good physical condition Additional Lifestyle Factors:no tobacco use; no alcohol intake; stopped drinking alcohol Depression Risk:never feels sad, empty, or tearful; no loss of interest in activities; no significant changes in weight; no sleep disturbances or insomnia; no agitation; no loss of energy; no feelings of worthlessness or guilt; no thoughts of suicide; no history of depression; no history of mood disorders Hearing:no loss of hearing Vision:no vision problems Jagdeep Lock, [address] [place], [address], [facility] 06/04/2024 09:30:32 4 text/html c/o gastritis/epigastric pain the patient reports that he is having abdominal painepigastric, included burping, reports that at super time he develops excessive belchingis fine in the morningeat around 5 to 6 pmcurrently feels like he is having heart burn and epigastric pain the patient denies chest pain or difficulties with activity no specific triggersdenies recent sickness had COVID back in April takes aleve in the morning and at nightusing voltarendoes admit to drinking socially maybe twice a weekdrinks half caff coffee LONA DWYER [address] [place], [address], [facility] 06/25/2024 14:19:01 5 text/html c/o groin pain the patient reports [...] testicles, no tenderness with palpation LONA DWYER [address] [place], [address], [facility] 11/15/2024 11:22:26
[2024-11-15 14:40] LABS: Basophils Percent Auto 0.5 % (0-2); Eosinophils Absolute Auto 0.1 X10*3/uL (0.0-0.4); Eosinophils Percent Auto 2.3 % (0-4); Hematocrit 39.7 % (42.0-52.0); Hemoglobin 13.8 g/dl (14.0-18.0); Imm Gran Abs Auto 0.01 X10*3/uL (0.00-0.03); Imm Gran Pct Auto 0.2 % (0.0-0.4); Lymphocytes Absolute Auto 1.4 X10*3/uL (1.2-4.9); Lymphocytes Percent Auto 25.4 % (20-40); Mean Corpuscular HGB Conc 34.8 g/dl (31.0-36.0); Mean Corpuscular Hemoglobin 32.5 pg (27.0-33.0); Mean Corpuscular Volume 93.6 fL (80.0-98.0); Mean Platelet Volume 9.2 fL (9.4-12.4); Monocytes Absolute Auto 0.5 X10*3/uL (0.1-1.2); Monocytes Percent Auto 9.2 % (2-11); Neutrophils Absolute Auto 3.5 x10*3/uL (2.0-8.3); Neutrophils Percent Auto 62.4 % (45-73); Platelet Count 224 X10*3/uL (160-400); Red Blood Count 4.24 X10*6/uL (4.60-5.80); Red Cell Distribution Width 13.1 % (11.0-16.0); White Blood Count 5.6 X10*3/uL (4.8-10.8)
[2024-11-15 14:48] LABS: Appearance Urine Clear; Color Urine Yellow; Glucose Urine UA Negative (Negative); Leukocyte Esterase Urine Negative (Negative); Nitrite Urine Negative (Negative); PH 6.5 (5.0-9.0); Specific Gravity - Urine <= 1.005 (1.005-1.025); Urine Blood Negative (Negative); Urine Ketones Negative (Negative); Urine Protein Negative (Neg-Trace)
[2024-11-15 15:19] LABS: Alanine Aminotransferase 24 U/L (0-40); Albumin Level 4.1 g/dL (3.5-5.0); Anion Gap 11 (12-20); Aspartate Amino Transferase 32 U/L (5-37); Bilirubin Total 0.7 mg/dL (0.0-1.0); Blood Urea Nitrogen 19 mg/dL (9-16); Calcium 8.9 mg/dL (8.4-10.2); Carbon Dioxide 25 mmol/L (22-29); Chloride 105 mmol/L (96-108); Estimated Glomerular Filt Rate > 60; Glucose Random 79 mg/dL (60-115); Potassium 4.3 mmol/L (3.3-5.1); Sodium 137 mmol/L (135-145); Total Protein 7.2 g/dL (6.5-8.0)
[2024-11-15 15:33] LABS: Prostate Specific Antigen 3.33 ng/mL (<0.05-4.0)
[2024-11-15 18:08] LABS: Alkaline Phosphatase 65 U/L (39-117)
== END 2024-11-15 14:06 | disposition home or self-care (01) ==
LOC: HO.LAB 14:05
PROVIDERS: PCP Internal Medicine; Visit Provider Physician Assistant
DX: R10.2 Pelvic and perineal pain (principal); Z12.5 Encounter for screening for malignant neoplasm of prostate
CPT/HCPCS: 36415; 80053; 81003; 84153; 85025

== ENCOUNTER 2025-01-08 15:08 | Outpatient (REF) | payer MEDICARE, SELFPAY ==
--- NOTE | ~2025-01-08 | CT_ITS ---
EXAMINATION: CT ABDOMEN PELVIS WITH IV CONTRAST HISTORY: pelvic pain, r/o hernia, testicular mass COMPARISON: There are no prior studies for comparison. TECHNIQUE: CT scan of the abdomen and pelvis was performed following administration of 85 mL Omnipaque 350 using standard departmental protocol. Coronal and sagittal reformatted images were generated and reviewed. Oral contrast material was not administered at the request of the referring physician. This CT exam was performed with one or more of the following dose reduction techniques: automated exposure control, adjustment of the mA and/or kV according to patient size, use of iterative reconstruction technique. DLP: 577 mGy-cm FINDINGS: LOWER CHEST: The visualized lung bases are clear. There is no pleural effusion. CARDIOVASCULATURE: The heart is normal in size. There is no pericardial effusion. LIVER: The liver is normal in size and contour. No liver mass is identified. The hepatic and portal veins are patent. GALLBLADDER / BILE DUCTS: The gallbladder is unremarkable. There is no intra or extrahepatic biliary ductal dilatation. SPLEEN: The spleen is normal in size. No focal splenic lesion is identified. PANCREAS: The pancreas is unremarkable in appearance. ADRENAL GLANDS: Within normal limits. KIDNEYS/RETROPERITONEUM: No renal calculi are identified. There is no hydronephrosis. No renal masses are identified. There is a retroaortic left renal vein. LYMPH NODES: No abdominal or pelvic lymphadenopathy. VASCULATURE: The abdominal aorta is normal in caliber. MESENTERY/PERITONEUM: No free fluid. No masses. There is no free intraperitoneal gas. STOMACH: The stomach is collapsed, limiting evaluation. SMALL BOWEL: The small bowel is normal in caliber. COLON: There is a moderate amount of stool throughout the colon. APPENDIX: Normal. URINARY BLADDER/PELVIC ORGANS: The urinary bladder is partially obscured by streak artifact from bilateral total hip arthroplasties. The prostate appears enlarged but only partially visualized due to streak artifact. BONES / SOFT TISSUES: No inguinal hernia is identified. No definite scrotal mass is identified. The bones are intact. CT/CT abdomen pelvis w IV con IMPRESSION: Moderate amount of stool throughout the colon. No inguinal hernia is identified. If there is clinical concern for scrotal mass, ultrasound is recommended. Electronically signed by: Gregory Crain MD 01/09/2025 07:08 AM EDT RP
[2025-01-08] MEDS: iohexoL 350 MG/ML 100 ML INFUS..BTL IV (15:54)
--- OUTSIDE RECORDS SUMMARY | 2025-01-08 17:43 | XMS_ITS | Data Portability ---
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 MODERATE MUST MEET 2 OUT OF [...] Organization Details Last Modified Time Details Appointments ANNUAL EXAM 2024 09:00A M DR LOCK Not available Not available Not available Lab PSA, serum or plasma 2024 025 [facility], [address] [place] [address], [id number], 11/18/2024 11:25:59 CBC w/ auto diff 2024 025 [facility], [address] [place] [address], [id number], 11/18/2024 11:49:10 CMP, serum or plasma 2024 025 [facility], [address] [place] [address], [id number], 11/18/2024 11:49:10 urinalysi s complete, reflex culture 2024 025 [facility], [address] [place] [address], [id number], 11/15/2024 11:21:37 CMP, serum or plasma 2023 024 [facility], [address] [place] [address], [id number], 06/05/2024 11:14:03 CBC w/ auto diff 2023 024 [facility], [address] [place] [address], [id number], 06/05/2024 11:14:04 lipid panel, blood 2023 024 [facility], [address] [place] [address], [id number], 06/05/2024 11:14:03 PSA, serum or plasma 2023 024 [facility], [address] [place] [address], [id number], 06/05/2024 11:14:04 CMP, serum or plasma 2022 023 [facility], [address] [place] [address], [id number], 05/16/2023 12:13:18 CBC w/ auto diff 2022 023 [facility], [address] [place] [address], [id number], 05/16/2023 12:13:19 PSA, serum or plasma 2022 023 [facility], [address] [place] [address], [id number], 05/16/2023 12:13:19 lipid panel, blood 2022 023 [facility], [address] [place] [address], [id number], 05/16/2023 12:13:19 CBC w/ auto diff 2021 022 [facility], [address] [place] [address], [id number], 04/27/2022 13:01:50 CMP, serum or plasma 2021 022 [facility], [address] [place] [address], [id number], 04/27/2022 13:01:50 PSA, serum or plasma 2021 022 [facility], [address] [place] [address], [id number], 04/26/2022 10:10:35 vitamin D, 25-hydrox y, total, serum 2021 [facility], [address] [place] [address], 16[address], 04/26/2022 10:10:35 vitamin B12, serum 2021 022 [facility], [address] [place] [address], [id number], 04/26/2022 10:10:35 TSH, serum or plasma 2021 022 [facility], [address] [place] [address], [id number], 04/26/2022 10:10:35 hepatitis C Ab, serum 2021 022 [facility], [address] [place] [address], [place], [address], 04/26/2022 10:10:35 Referral dermatolo gist referral 2023 024 [email or web address] 10 [facility], [address], [place], [address], 06/05/2024 08:17:44 hand surgeon referral 2021 022 [email or web address] 10 Alisha Paz MD, [address] [place], [address], 05/25/2022 08:00:03 Procedures None recorded. Surgeries None recorded. Imaging CT, abdomen + pelvis, w/ contrast 2024 025 [facility], [address] [place] [address], [id number], 11/19/2024 08:33:41 Medication Orders omeprazol e 40 mg capsule,d elayed release 2023 024 [email or web address] [id number], [address] [facility], [place], [address], 07/17/2024 08:30:54 Patient TargetsNo targets recorded. Patient Instructions Encounter Date Encounter Id Patient Instructions Last Modified By Organization Details Last Modified Time 04/26/2022 [id number] osteoarthritis: care instructions Not available 04/26/2022 10:06:43 05/15/2023 [id number] osteoarthritis: care instructions Not available 05/15/2023 15:55:18 Reason for Referral Hand Surgeon Referral for Os teoarthrosis of the carpometacarpal joint of the thumb Referring Physician: Jagdeep Lock, Internal Medicine, Encounter Date: 04/26/2022 Tafe Lecturer Referral for D ysplastic nevus of skin Referring Physician: Jagdeep Lock, Internal Medicine, Encounter Date: 06/04/2024 Results Created Date Observation Date Name Description Value Unit Range Abnormal Flag Note LastModifiedBy Organization Detail LastModifiedTime Result Notes None recorded. Problems Name Problem SNOMED Code Status Onset Date Resolution Date Notes Provider Name and Address Organization Details Recorded Time Benign prostatic hyperplas ia 200772536 Active 2020 Not Available [facility] 3 08:19:45 Tenosynov itis of right radial styloid 163664000077 26173 Active 2021 Not Available [facility] 3 08:19:45 Osteoarth rosis of the carpometa carpal joint of the thumb 63412374 Active 2021 Not Available [facility] 3 08:19:45 Dysplasti c nevus of skin 486165081 Active 2023 Jagdeep Lock DO [address] [place] [address], [phone], [facility] 4 09:22:34 Gastritis 7811472 Active 2023 LONA DWYER [address] [place] [address], [address], [facility] 4 14:13:51 Inguinal pain 405691899 Active 2024 LONA DWYER [address] [place] [address], [address], [facility] 5 11:17:58 Pain in right hip joint 418970554981 102 Active 2024 LONA DWYER [address] [place] [address], [address], [facility] 5 11:18:06 Low back pain 735922418 Active 2024 LONA DWYER [address] [place] [address], [address], [facility] 5 11:18:15 Problem Notes None recorded. Medical Equipment None Reported. Allergies No known drug allergies Medications Name Sig Start Date Stop Date Status Note LastModified by Organization Details LastModified Time hydromorpho ne hcl 4 mg tabs 03/10 completed Not Available Not Available Not Available celecoxib 200 mg caps 03/10 completed Not Available Not Available Not Available pantoprazol e sodium 40 mg tbec 03/10 [...] Available Not Available Not Available Fluarix Quad 1045-8292 (PF) 60 mcg (15 mcg x 4)/0.5 mL IM syringe 03/05 completed Not Available Not Available Not Available Vitals Date Recorded Body weight Body mass index (BMI) Body height Heart rate Oxygen saturation Oxygen saturation in Arterial blood by Pulse oximetry Systolic blood pressure Diastolic blood pressure Provider Name and Address Organization Details Last Updated DateTime 2 42684.2 9 g 28.2 kg/m2 168.91 cm 56 /min 99 % 99 % 144 mm[Hg] 90 mm[Hg] Jagdeep Lock, DO [address] [place], [address] [place] [address] Internal Medicine 2 09:31:09 Date Recorded Body height Body mass index (BMI) Body weight Heart rate Oxygen saturation Oxygen saturation in Arterial blood by Pulse oximetry Systolic blood pressure Diastolic blood pressure Provider Name and Address Organization Details Last Updated DateTime 3 167.64 cm 28.4 kg/m2 28459.2 6 g 54 /min 99 % 99 % 122 mm[Hg] 80 mm[Hg] Sujata Rojas [facility] 3 14:48:06 Date Recorded Body height Body mass index (BMI) Body weight Heart rate Oxygen saturation Oxygen saturation in Arterial blood by Pulse oximetry Systolic blood pressure Diastolic blood pressure Provider Name and Address Organization Details Last Updated DateTime 4 167.64 cm 28.4 kg/m2 72524.2 6 g 55 /min 99 % 99 % 122 mm[Hg] 68 mm[Hg] Sujata Rojas [facility] 4 09:11:30 Date Recorded Body height Body mass index (BMI) Body weight Heart rate Oxygen saturation Oxygen saturation in Arterial blood by Pulse oximetry Systolic blood pressure Diastolic blood pressure Provider Name and Address Organization Details Last Updated DateTime 4 167.64 cm 28.5 kg/m2 90336.0 5 g 55 /min 97 % 97 % 120 mm[Hg] 86 mm[Hg] Laura Toledo [facility] 4 14:02:52 Date Recorded Body height Body mass index (BMI) Body weight Heart rate Oxygen saturation Oxygen saturation in Arterial blood by Pulse oximetry Systolic blood pressure Diastolic blood pressure Provider Name and Address Organization Details Last Updated DateTime 5 167.64 cm 29.1 kg/m2 22207.3 5 g 56 /min 98 % 98 % 126 mm[Hg] 82 mm[Hg] Laura Toledo [facility] 5 10:49:42 Social History Question Answer Notes LastModified by Organizat ion Details LastModified Time Tobacco Smoking Status Never Smoker Not Available [facility] 07/28/2020 03:36:24 What Is Your Level Of Alcohol Consumption? Occasional [id number] Information not available 07/28/2020 What Is Your Level Of Caffeine Consumption? Occasional 2-3 Cups Coffee Per Day [id number] Information not available 07/28/2020 What Was The Date Of Your Most Recent Tobacco Screening? 11/15/2024 [email or web address] Information not available 11/15/2024 Do You Or Have You Ever Used Any Other Forms Of Tobacco Or Nicotine? No [email or web address] Information not available 05/15/2023 Sex: Unknown Functional Status Question Answer Note LastModified by Organization D etails LastModified Time What is your exercise level? Moderate [id number] Information not available 07/28/2020 Mental Status None recorded. Family History Nothing Reported. Medical History No medical history recorded. Immunizations Vaccine Type Date Status Note Provider Nam e and Address Organization Details Recorded Time Tdap 04/12/20 20 completed Jagdeep Lock DO [address] [place] [address], [place], [address], [facility] Internal [facility] 04/20/2021 10:50:41 pneumococcal polysaccharide PPV23 06/02/20 20 completed Tayler Gencarelle [facility], [facility] 04/26/2022 09:26:59 zoster, unspecified formulation 06/02/20 20 completed Tayler Gencarelle null, [facility] 04/26/2022 09:26:59 zoster, unspecified formulation 10/16/19 21 completed Tayler Gencarelle null, [facility] 04/26/2022 09:26:59 COVID-19, mRNA, LNP-S, PF, 100 mcg/0.5mL dose or 50 mcg/0.25mL dose 11/16/19 21 completed Tayler Gencarelle null, [facility] 04/26/2022 09:26:59 COVID-19, mRNA, LNP-S, PF, 100 mcg/0.5mL dose or 50 mcg/0.25mL dose 12/15/19 21 completed Tayler Gencarelle null, [facility] 04/26/2022 09:26:59 Influenza, split virus, quadrivalent, preservative 06/08/20 21 completed Tayler Gencarelle null, [facility] 04/26/2022 09:26:59 COVID-19, mRNA, LNP-S, bivalent, PF, 50 mcg/0.5 mL or 25mcg/0.25 mL dose 08/30/20 22 completed Liliana Alonzo [facility] 09/02/2022 08:27:16 Influenza, split virus, quadrivalent, preservative 07/22/20 18 completed Tayler Gencarelle [facility] 04/26/2022 09:26:59 Past Encounters Encounter ID Performer Location Encounter Start Date Encounter Closed Date Diagnosis/Indication Diagnosis SNOMED-CT Code Diagnosis ICD10 Code Diagnosis Note [id number] Jagdeep Lock DO [facility] [address] [facility],[place] [address] 02/27/2018 10:38:02 02/27/2018 12:08:31 Adult health examination 713757161 Z00.00 doing great awesome exercise and diet routines will need fbw Active or passive immunization 084561573 Z23 recc shingles vaccine [id number] Jagdeep Lock [facility] Internal [facility] [address] [facility] [address] [place] [address] [facility] [address] 05/01/2018 15:00:28 05/01/2018 16:34:54 Postcalcaneal bursitis 447470485 M77.30 will finish diclofenac set up ortho if stable can cancel ortho if pain resumes will already have appt [id number] Jagdeep Lock [facility] Internal [facility] [address] [facility] [address] [place] [address] [facility] [address] 03/05/2019 09:52:40 03/05/2019 10:27:13 Adult health examination 657048265 Z00.00 doing great awesome exercise and diet routines will need fbw Pain of le ft hip joint 8255136566 25169 M25.552 will xray first consider refer to dr bobo at [facility] [id number] Jagdeep Lock [facility] Internal [facility] [address] [facility],[place] [facility] [place] [address] 09/27/2019 15:14:09 09/27/2019 15:54:16 Pain in left knee 7462285288 97282 M25.562 poss lat meniscal injury or even IT band? will ask for a eval with xray Pain of le ft hip joint 5553681307 [address] Bobo at [facility] is following this Awaiting appt to schedule replacemen t in Oct Jagdeep Lock [facility] [address] [facility] [address] [place] D [facility] [address] 03/10/2020 09:53:24 03/10/2020 10:32:46 Adult health examination 199131030 Z00.00 doing great awesome exercise and diet routines will need fbw Active or passive immunization 784045142 Z23 recc shingles vaccine [id number] Jagdeep Lock [facility] [address] [facility],[place] [address] 04/20/2021 10:46:17 04/20/2021 11:36:29 Active or passive immunization 102474694 Z23 recc shingles vaccine Adult heal th examination 304173249 Z00.00 doing great awesome exercise and diet routines will need fbw Primary er ectile dysfunction 083138590 N52.9 [id number] Jagdeep Lock [facility] [address] [facility], [place] [address] 04/26/2022 09:26:43 04/26/2022 10:37:07 Active or passive immunization 835843403 Z23 recc shingles vaccine Adult heal th examination 665745277 Z00.01 doing great awesome exercise and diet routines will need fbw Hepatitis C screening 41 2145142 Z11.59 Osteoarthr osis of the carpometacarpal joint of the thumb 18334649 M18.9 [id number] Jagdeep Lock [facility] [address] [facility], [place] [address] 05/15/2023 14:37:16 05/15/2023 16:03:04 Osteoarthrosis of the carpometacarpal joint of the thumb 31960421 M18.9 Adult heal th examination 588451063 Z00.01 doing great awesome exercise and diet routines will need fbw [id number] Jagdeep Lock [facility] [address] [facility], [place] [address] 06/04/2024 09:00:36 06/04/2024 09:53:34 Active or passive immunization 921715057 Z23 recc shingles vaccine Adult heal th examination 465512483 Z00.00 doing great awesome exercise and diet routines will need fbw Benign pro static hyperplasia 550554996 N40.0 Dysplastic nevus of skin 028252841 D22.9 will have them get it checked on his back [id number] SANDRO VILLALPANDO [facility] Internal Medicine [address] [facility], [place] [address] 06/25/2024 13:56:52 06/25/2024 14:49:01 Depression screening 378351594 Z13.31 SCREENING NEGATIVE Gastritis 6372324 K29.60 will set up with omeprazole [id number] LONA DWYER Internal [facility] [address] [facility] [address],[place] [address] 11/15/2024 10:32:09 11/15/2024 11:23:00 Screening for malignant neoplasm of prostate 664759900 Z12.5 will set up with PSA screening recheck given upper wnl last time and new symptoms with urine testing Inguinal pain 604364086 R10.[address] for eval for the non specific pain Pain in ri ght hip joint 2506714955 11980 M25.551 hx of THR Low back pain 178876720 M54.50 Health Concerns Section Related Observation LastModified by Organization Detai ls LastModified Time None Recorded Concern Status LastModified by Organization Details LastModified Time None Recorded Advance Directives Directive None Recorded Payers Encounter Date Sequence Insurance Name Policy Number Policy Saucedo Covered Member ID Saucedo Member ID Guarantor Name 04/26/2022 2 [employer] OPTIONS (MEDICARE SUPPLEMENT) Hal A Laprade [id number] Hal A Laprade 04/26/2022 1 MEDICARE B-MD: [employer] Hal A Laprade [id number] Hal A Laprade 05/15/2023 2 [employer] OPTIONS (MEDICARE SUPPLEMENT) Hal A Laprade [id number] Hal A Laprade 05/15/2023 1 MEDICARE B-MD: [employer] Hal A Laprade [id number] Hal A Laprade 06/04/2024 2 [employer] OPTIONS (MEDICARE SUPPLEMENT) Hal A Laprade [id number] Hal A Laprade 06/04/2024 1 MEDICARE B-MD: NATIONAL [employer] Hal A Laprade [id number] Hal A Laprade 06/25/2024 2 [employer] OPTIONS (MEDICARE SUPPLEMENT) Hal A Laprade [id number] Hla A Laprade 06/25/2024 1 MEDICARE B-MD: NATIONAL [employer]ERNMENT SERVICES Hal A Laprade [id number] Hal Story 11/15/2024 1 [facility]: MEDICARE PPO BLUE (MEDICARE REPLACEMENT PPO) [id number] Hal Story [id number] Hal Story Notes Date Note Type Note Provider Name a nd Address Organization Details Recorded Time 2 text/html [...] walks daily several miles Jagdeep Lock DO [address] [place] [address], [address], [facility] 04/26/2022 10:08:42 3 text/html here for rechkstill has a lot of pain in the left thumb area where he has all the arthritishas a couple of skin lesions on his back Jagdeep Lock DO [address] [place] [address], [address], [facility] 05/15/2023 15:58:12 4 text/html doing well states that he is just back from a trip from [facility] Jagdeep Lock DO [address] [place] [address], [address], [facility] 06/04/2024 09:30:32 4 text/html Annual [...] loss of hearing Vision:no vision problems Jagdeep Lock DO [address] [place], [address], [facility] 06/04/2024 09:30:32 4 text/html c/o [...] weekdrinks half caff coffee LONA DWYER [address] [place], [address], [facility] 06/25/2024 14:19:01 5 text/html c/o [...] no tenderness with palpation LONA DWYER [address] [place], [address], [facility] 11/15/2024 11:22:26
[2025-01-09 10:02] LABS: Creatinine POC 0.8 mg/dL (0.5-1.4); GFR POC > 60
== END 2025-01-08 15:09 | disposition home or self-care (01) ==
LOC: HO.CT 15:08
PROVIDERS: PCP Internal Medicine; Visit Provider Physician Assistant
DX: R10.2 Pelvic and perineal pain (principal)
CPT/HCPCS: 74177; 82565; Q9967

== ENCOUNTER → 2025-01-08 15:36 | Outpatient (BNV) | payer MEDICARE, SELFPAY | PROVIDERS: PCP Internal Medicine; Visit Provider Radiology Diagnostic Radiology | DX: R10.2 Pelvic and perineal pain (principal) | CPT/HCPCS: 74177 ==